=== PATIENT | female | born 1935 | race Caucasian/White ===

== ENCOUNTER → 2017-02-12 | Outpatient (CLI) | payer MEDICARE ==
[~2017-02-12] MED LIST: ACET500T68 PO; ASPI-482 PO; CAND32TA2 PO; DILT120C2 PO; GADOBUTROL 7.5 MMOL/7.5 ML VIAL IV ONE; LEVO25TA4 PO; PRAV40TA2 PO; WARF7.5T48 PO
--- NOTE | 2017-02-12 12:26 | KCIC ---
INDICATION: Sensorineural hearing loss, right greater than left. TECHNIQUE: Whole brain sagittal T1, axial T1, axial T2, axial FLAIR, axial T2 gradient, postcontrast axial, postcontrast coronal, and diffusion imaging with ADC map was performed. Thin imaging through the internal auditory canals includes axial T1, axial T2, coronal T2, axial postcontrast, and coronal postcontrast sequences. There is motion degradation. Patient moved during the course of the exam and was re-scouted for postcontrast imaging. 6 mL of intravenous Gadavist was administered without complication. No comparison is available. FINDINGS: There is prominence of the ventricles and sulci. A few FLAIR hyperintensities in the supratentorial white matter are not specific but most suggestive of minimal small vessel ischemic disease. There is no acute intracranial hemorrhage or extra-axial fluid collection. There is no mass effect or midline shift. There is no restricted diffusion to suggest an acute infarct. Sagittal midline structures are unremarkable. Pituitary and suprasellar region are unremarkable. Intracranial flow voids are preserved. There is ethmoid mucosal thickening bilaterally. There is right sphenoid mucosal thickening. Mastoid air cells are clear. Whole brain postcontrast imaging does not demonstrate any pathologic enhancement. Thin imaging through the internal auditory canals demonstrates no evidence of cerebellopontine angle mass or internal auditory canal mass. There is no pathologic enhancement involving the 7th or 8th cranial nerves. Cochlea, vestibule, and semicircular canals are within normal limits. Evaluation is mildly degraded by motion. IMPRESSION: 1. Negative for cerebellopontine angle mass or internal auditory canal mass. 2. Brain parenchymal volume loss and minimal probable small vessel ischemic disease. 3. Mild motion degradation. Electronically signed by: Merlin Moseley MD (02/12/2017 12:23 PM) [id number]
== END | disposition home or self-care (01) ==
LOC: KCIC MRI 09:41
PROVIDERS: ATTEND Otolaryngology Otology & Neurotology
DX: H90.3 Sensorineural hearing loss, bilateral (principal)
CPT/HCPCS: 70553; 82565; A9585

== ENCOUNTER → 2017-09-05 | Outpatient (CLI) | payer MEDICARE, OTHER | END | disposition home or self-care (01) | LOC: KCIC MAMMO 12:23 | DX: Z12.31 Encounter for screening mammogram for malignant neoplasm of breast (principal); R09.89 Other specified symptoms and signs involving the circulatory and respiratory systems; R42 Dizziness and giddiness | CPT/HCPCS: 77063; 77067; 93880 ==

== ENCOUNTER → 2018-12-30 | Outpatient (CLI) | payer MEDICARE, OTHER ==
[~2018-12-30] MED LIST changes: +CAND32TA19 PO; -CAND32TA2 PO; -GADOBUTROL 7.5 MMOL/7.5 ML VIAL IV ONE
--- NOTE | 2018-12-30 11:57 | KCIC ---
Bilateral digital screening mammograms with 3-D tomosynthesis: Reason for examination: Routine screening. Comparison is made to previous studies dated back to 02/22/2015.. Bilateral mammograms in CC and oblique projections were obtained with 2-D imaging and 3-D tomosynthesis imaging on a Siemens Inspiration unit and reviewed on the workstation. Interpretation was made with the benefit of CAD. The skin and nipples show no abnormalities. No abnormal axillary lymph nodes are seen. The breast parenchyma is heterogeneously dense. (Breast density: Category C.) There continues to be a small nodular density in the 1:00 C position of the right breast which is unchanged. There are no new dominant masses, suspicious calcifications or architectural distortion. Impression: No evidence of malignancy. Recommend routine screening. Your patient's mammogram demonstrates that she has dense breast tissue (breast density category C or D), which could hide abnormalities, and if she has other risk factors for breast cancer that have been identified, she might benefit from supplemental screening tests that may be suggested by you as her ordering physician. Dense breast tissue, in and of itself, is a relatively common condition. Therefore, this information is not provided to cause undue concern, but rather to raise your awareness and to promote discussion with your patient regarding the presence of other risk factors, in addition to dense breast tissue. Your patient's mammography results will be sent to her. BI-RAD Category 2: Benign. "Our facility is accredited by the [employer] Mammography Program." This patient's information has been entered into a reminder system for the patient to be notified with the results of her examination and a target date for the next mammogram. Electronically signed by: Sonia Velasquez MD (12/30/2018 11:54 AM) [id number]
== END | disposition home or self-care (01) ==
LOC: KCIC MAMMO 10:31
PROVIDERS: ATTEND Internal Medicine
DX: Z12.31 Encounter for screening mammogram for malignant neoplasm of breast (principal); N64.89 Other specified disorders of breast
CPT/HCPCS: 77063; 77067